=== PATIENT | male | born 1960 | race Caucasian/White ===

== ENCOUNTER 2016-07-05 18:26 | Emergency (ER) | payer SELFPAY ==
[2016-07-05] MEDS ORDERED: ALBUTEROL/IPRATROPIUM 2.5/0.5 MG 3 ML/EACH DOSE ONE (18:32)
[2016-07-05 18:50] LABS: ABSOLUTE NEUTROPHIL COUNT 4.2 K/mm3 (1.8-7.7); BASO # 0.1 K/mm3 (0.0-0.2); BASO % 0.8 % (0.2-1.0); EOS # 0.6 (0.0-0.5); EOS % 7.1 % (0.9-2.9); HEMOGLOBIN 15.5 gm/l (14.0-18.0); IMM NEUT% 0.3 % (0-1); LYMPH # 2.5 (1.0-4.8); MEAN CELL VOLUME 95.5 fl (80.0-94.0); MEAN CORPUSCULAR HEMOGLOBIN 31.5 pg (27.0-31.0); MEAN PLATELET VOLUME 10.9 fl (7.4-10.4); MONO # 0.6 (0.0-0.8); MONO % 7.3 % (4-12); NEUT % 53.5 % (43-75); PLATELET COUNT 263 K/mm3 (130-400); RED CELL DISTRIBUTION WIDTH 12.7 % (11.5-14.5)
[2016-07-05 19:03] LABS: ALB/GLOB RATIO 1.5 (>1.0); ALBUMIN 4.4 gm/dL (3.5-5.7); CALCIUM 9.3 mg/dL (8.6-10.3)
[2016-07-05] MEDS ORDERED: METHYLPRED SOD SUCCINATE 125 MG VIAL ONE (19:33)
[2016-07-05] MEDS ORDERED: ALBUTEROL SULFATE 5MG/ML INHALANT 20 ML BOT ONE (19:41)
[2016-07-05] MEDS ORDERED: SODIUM CL FOR INHALATION 3 ML DOSE ONE (19:41)
--- NOTE | 2016-07-06 07:45 | RAD ---
Exam: Two-view chest COMPARISON: None INDICATION: Shortness of breath. FINDINGS: PA and lateral views of the chest were obtained. Cardiac silhouette is within normal limits. Lungs are well-inflated. Opacities which project over the inferior aspect of the heart on the lateral view probably reflect epicardial fat pads. There is no focal airspace disease or pleural effusion. Nodular opacity projects over the right anterior sixth rib likely reflects a nipple shadow. Bones of the chest wall within normal limits. IMPRESSION: No acute pulmonary process.
== END 2016-07-05 21:17 | disposition home or self-care (01) ==
LOC: ED 18:26
DX: R06.00 Dyspnea, unspecified (principal); J44.9 Chronic obstructive pulmonary disease, unspecified; E11.9 Type 2 diabetes mellitus without complications; Z79.84 Long term (current) use of oral hypoglycemic drugs
CPT/HCPCS: 85025; 82553; 80053; 84484; 71020; 94640; 94644; 99284; 96374; 93005; 99283; J2930; A9270